=== PATIENT | female | born 1995 | race Caucasian/White ===

== ENCOUNTER 2017-03-01 13:17 | Emergency (ER) | payer OTHER ==
[~2017-03-01] VITALS: Ht 162.6 cm; Wt 93.5 kg
[~2017-03-01 13:17] MED LIST: BIRTH CONTROL; MACROBID100 MG PO; NOHOMEMEDS; PRENATA CHEWAB1 EACH PO; ZOFRAN ODT4 MG PO
[2017-03-01 14:20] LABS: HEMATOCRIT 43.9 % (36.0-46.0); MCH 28.8 PG (29.0-34.0); MCHC 33.7 G/DL (30.0-36.0); MCV 85.6 FL (83-99); MEAN PLAT.VOLUME 10.7 uM^3 (9.5-12.4); PLATELET COUNT 257 K/uL (156-360); RBC DIS.WIDTH-CV 12.5 % (11.8-14.6); RBC DIS.WIDTH-SD 39.2 % (39-53); RED BLOOD COUNT 5.13 M/uL (3.80-5.20); WHITE BLOOD COUNT 12.6 K/uL (4.1-10.2)
[2017-03-01 14:28] LABS: CHLORIDE 106 mEq/L (99-109); POTASSIUM 4.1 mEq/L (3.7-5.4); SODIUM 140 mEq/L (136-147)
[2017-03-01 14:30] LABS: GLUCOSE 91 mg/dL (70-99)
[2017-03-01 14:31] LABS: ANION GAP 11 MEQ/L (2-14)
[2017-03-01 14:34] LABS: GFR ESTIMATE (CALCULATED) > 59 mL/min/
[2017-03-01 14:35] LABS: UREA NITROGEN (BUN) 10 mg/dL (9-23)
[2017-03-01 14:41] LABS: TROP-I INTERPRETATION NEGATIVE; TROPONIN-I < 0.01 ng/mL (0.0-0.30)
[2017-03-01 15:11] LABS: QUANTITATIVE HCG < 4.0 MIU/ML
[2017-03-01 15:46] VITALS: BP 123/67
== END 2017-03-01 15:46 | disposition home or self-care (01) ==
LOC: EME 13:17
DX: R07.9 Chest pain, unspecified (principal); K29.70 Gastritis, unspecified, without bleeding
CPT/HCPCS: 71020; 80048; 84484; 84702; 85027; 93005; 99281; 99284

== ENCOUNTER 2018-03-20 21:34 | Emergency (ER) | payer OTHER ==
[~2018-03-20] VITALS: Ht 162.6 cm; Wt 94.1 kg
[2018-03-20 23:11] LABS: BASOPHIL (%) 0.5 % (0-1); BASOPHIL COUNT 0.1 K/uL (0-0.1); EOSINOPHIL COUNT 0.2 K/uL (0-0.3); HEMATOCRIT 42.1 % (36.0-46.0); HEMOGLOBIN 14.4 G/DL (11.9-15.5); IMMATURE GRANULOCYTE (%) 0.7 % (0.0-0.7); LYMPHOCYTE COUNT 2.7 K/uL (1.0-2.8); MCH 29.8 PG (29.0-34.0); MCHC 34.2 G/DL (30.0-36.0); MONOCYTE COUNT 0.7 K/uL (0-0.8); NEUTROPHIL (%) 74.8 % (45-76); NEUTROPHIL COUNT 11.1 K/uL (1.8-6.4); PLATELET COUNT 239 K/uL (156-360); RBC DIS.WIDTH-CV 12.5 % (11.8-14.6); RBC DIS.WIDTH-SD 39.9 % (39-53); RED BLOOD COUNT 4.84 M/uL (3.80-5.20); WHITE BLOOD COUNT 14.8 K/uL (4.1-10.2)
[2018-03-20 23:24] LABS: AMYLASE 46 IU/L (1-118); CHLORIDE 104 mEq/L (99-109); POTASSIUM 4.3 mEq/L (3.7-5.4); SODIUM 139 mEq/L (136-147)
[2018-03-20 23:26] LABS: GLUCOSE 127 mg/dL (70-99)
[2018-03-20 23:29] LABS: SERUM ETHYL ALCOHOL < 10 mg/dL
[2018-03-20 23:30] LABS: CREATININE 0.8 mg/dL (0.6-1.3); GFR ESTIMATE (CALCULATED) > 59 mL/min/
[2018-03-20 23:31] LABS: UREA NITROGEN (BUN) 13 mg/dL (9-23)
[2018-03-20 23:33] LABS: LIPASE 31 U/L (1.0-51.0)
[2018-03-21 00:08] LABS: APPEARANCE CLEAR ((CLEAR)); BILIRUBIN NEGATIVE; BLOOD NEGATIVE; COLOR YELLOW ((YELLOW)); GLUCOSE (STRIP) NEGATIVE; KETONES NEGATIVE; LEUKOCYTES NEGATIVE; NITRITE NEGATIVE; PROTEIN (STRIP) 30; SPECIFIC GRAVITY 1.013 (1.000-1.030); UCUL ADDED? NO
[2018-03-21 00:22] LABS: AMPHETAMINE NEGATIVE (500 ng/mL); BARBITURATES NEGATIVE (200 ng/mL); BENZODIAZEPINES NEGATIVE (150 ng/mL); BUPRENORPHINE NEGATIVE (10 ng/mL); COCAINE NEGATIVE (150 ng/mL); METHADONE NEGATIVE (200 ng/mL); METHAMPHETAMINE NEGATIVE (500 ng/mL); OPIATES (MORPHINE) NEGATIVE (100 ng/mL); OXYCODONE NEGATIVE (100 ng/mL); PHENCYCLIDINE NEGATIVE (25 ng/mL); PROPOXYPHENE NEGATIVE (300 ng/mL); THC CANNABINOIDS NEGATIVE (50 ng/mL); TRICYCLIC ANTIDEPRESSANTS NEGATIVE (300 ng/mL)
[2018-03-21] MEDS ORDERED: MOTRIN800 MG PO (02:22)
[2018-03-21] MEDS ORDERED: FLEXERIL10 MG PO (02:22)
[2018-03-21 02:39] VITALS: BP 109/61
== END 2018-03-21 02:40 | disposition home or self-care (01) ==
LOC: EME 21:34
PROVIDERS: Emergency Medicine
DX: S70.00XA Contusion of unspecified hip, initial encounter (principal); S06.0X0A Concussion without loss of consciousness, initial encounter; M54.2 Cervicalgia; M54.5 Low back pain; S00.81XA Abrasion of other part of head, initial encounter; R10.32 Left lower quadrant pain; V49.40XA Driver injured in collision with unspecified motor vehicles in traffic accident, initial encounter; Y92.410 Unspecified street and highway as the place of occurrence of the external cause; R91.1 Solitary pulmonary nodule; Z85.9 Personal history of malignant neoplasm, unspecified
CPT/HCPCS: 70450; 71260; 72125; 74177; 80048; 81003; 82150; 83690; 85025; 99281; 99284; G0480; J3010